=== PATIENT | male | born 1990 | race Caucasian/White ===

== ENCOUNTER 2020-12-28 13:12 | Emergency (ER) | payer OTHER ==
[~2020-12-28] VITALS: Ht 180.3 cm; Wt 72.6 kg
[2020-12-28] MEDS ORDERED: TYLENOL325 M1 PO (14:40)
[2020-12-28] MEDS ORDERED: NAPROXEN250 MG PO (14:40)
== END 2020-12-28 14:49 | disposition home or self-care (01) ==
LOC: ED 13:12
DX: M25.521 Pain in right elbow (principal); F17.200 Nicotine dependence, unspecified, uncomplicated

== ENCOUNTER 2023-11-25 00:43 | Emergency (ER) | payer SELFPAY ==
[~2023-11-25] VITALS: Ht 180.3 cm; Wt 77.1 kg
[~2023-11-25 00:43] MED LIST: NAPROXEN250 MG PO; TYLENOL325 M1 PO
[2023-11-25] MEDS ORDERED: AMOX-CLAV 875-1 EACH PO ×2 (01:08→01:09)
== END 2023-11-25 01:24 | disposition home or self-care (01) ==
LOC: ED 00:43
DX: K04.7 Periapical abscess without sinus (principal); K02.9 Dental caries, unspecified; I10 Essential (primary) hypertension; F17.200 Nicotine dependence, unspecified, uncomplicated

== ENCOUNTER 2024-04-20 16:12 | Emergency (ER) | payer SELFPAY ==
[~2024-04-20] VITALS: Ht 180.3 cm; Wt 72.6 kg
[~2024-04-20 16:12] MED LIST changes: +AMOX-CLAV 875-1 EACH PO
== END 2024-04-20 16:36 | disposition home or self-care (01) ==
LOC: ED 16:12
DX: T16.1XXA Foreign body in right ear, initial encounter (principal); I10 Essential (primary) hypertension; W44.8XXA Other foreign body entering into or through a natural orifice, initial encounter; Y93.89 Activity, other specified; Y92.89 Other specified places as the place of occurrence of the external cause; Y99.8 Other external cause status

== ENCOUNTER 2025-05-04 16:03 | Emergency (ER) | payer BC ==
[~2025-05-04] VITALS: Ht 180.3 cm; Wt 77.1 kg
[2025-05-04] MEDS ORDERED: PENICILLIN VK500 MG PO (16:38)
[2025-05-04] MEDS ORDERED: ZESTRIL10 MG PO (16:38)
[2025-05-04] MEDS ORDERED: LISINOPRIL 10 MG TAB PO ONE (16:40)
[2025-05-04] MEDS ORDERED: PENICILLIN V POTASSIUM 500 MG TAB PO ONE (16:40)
== END 2025-05-04 16:43 | disposition home or self-care (01) ==
LOC: ED 16:03
DX: K04.7 Periapical abscess without sinus (principal); I10 Essential (primary) hypertension